=== PATIENT | male | born 1940 | race Caucasian/White ===

== ENCOUNTER → 2018-03-11 08:53 | Outpatient (CLI) | payer MEDICARE, SELFPAY ==
[2018-03-11 09:04] LABS: Hematocrit 47.9 % (40-54); Hemoglobin 13.4 g/dl (13.0-16.5)
== END ==
PROVIDERS: Referring Provider Internal Medicine Hematology & Oncology; Visit Provider Internal Medicine Hematology & Oncology
DX: D45 Polycythemia vera (principal)
CPT/HCPCS: 85014; 85018